=== PATIENT | female | born 1985 | race Caucasian/White ===

== ENCOUNTER 2017-08-16 06:17 | Emergency (ER) | payer OTHER ==
[~2017-08-16] VITALS: Ht 160 cm; Wt 52.2 kg
[~2017-08-16 06:17] MED LIST: ACETAMINOPHEN-1 EAC1 PO; BACTRIM DS TAB1 EACH PO; IBUPROFEN 600600 M1 PO; NOHOMEMEDICATIONS; NORCO 5-325 TA1 EACH PO; PHENAZOPYRIDIN200 M2 PO; PHENERGAN 25 MG25 M1 PO; ZOFRAN ODT4 MG PO
[2017-08-16] MEDS ORDERED: ADDERALL 30 MG30 MG PO (06:29)
[2017-08-16 06:41] LABS: ABSOLUTE NEUTROPHILS 3.5 thou/uL (1.4-8.2); BASOPHILS 0.8 % (0.0-2.0); EOSINOPHILS 1.2 % (0.0-3.0); HEMATOCRIT 42.2 % (37.0-47.0); HEMOGLOBIN 14.4 gm/dL (12.0-15.0); MCH 30.3 pg (26.0-34.0); MCHC 34.1 g/dL (28.0-37.0); MCV 88.9 fL (80.0-100.0); MONOCYTES 7.8 % (1.0-8.0); PLATELET COUNT 256 thou/uL (150-400); POLYS 50.2 % (36.0-66.0); RBC 4.74 mil/uL (4.20-5.00); RDW 12.6 % (10.5-14.5); WBC 6.9 thou/uL (4.0-11.0)
[2017-08-16 06:47] LABS: URINE BILIRUBIN NEGATIVE (Negative); URINE BLOOD NEGATIVE (Negative); URINE CLARITY CLEAR; URINE COLOR YELLOW; URINE GLUCOSE-RANDOM* NEGATIVE (Negative); URINE KETONES 3+ (Negative); URINE LEUKOCYTES NEGATIVE (Negative); URINE NITRITE POSITIVE (Negative); URINE PROTEIN (DIPSTICK) 1+ (Negative); URINE SPECIFIC GRAVITY >= 1.030 (1.005-1.035); URINE UROBILINOGEN 0.2 E.U./dl (0.2-1.0)
[2017-08-16 06:49] LABS: CALCIUM 9.6 mg/dL (8.5-10.1)
[2017-08-16 06:50] LABS: POTASSIUM 2.9 mmol/L (3.5-5.1)
[2017-08-16 06:54] LABS: ALBUMIN 4.3 g/dL (3.4-5.0); DIRECT BILIRUBIN 0.2 mg/dL (<0.1-0.3); TOTAL PROTEIN 8.1 g/dL (6.4-8.2)
[2017-08-16 07:42] LABS: CASTS None Seen /LPF (None Seen); CRYSTALS None Seen /LPF (None Seen); SQUAMOUS 0-3 Few /LPF (0-3); URINE WBC 6-15 Few /HPF (0-5)
[2017-08-16 07:43] LABS: URINE RBC 0-2 Rare /HPF (0-2)
[2017-08-16 07:47] LABS: BACTERIA >30 Many /HPF (None Seen)
[2017-08-16] MEDS ORDERED: MACROBID 100 M100 M1 PO (07:53)
[2017-08-16 08:45] VITALS: BP 120/87
[2017-08-16] MEDS ORDERED: ATIVAN1 MG PO (08:57)
== END 2017-08-16 08:45 | disposition home or self-care (01) ==
LOC: ER 06:17
PROVIDERS: Emergency Medicine
DX: F41.0 Panic disorder [episodic paroxysmal anxiety] (principal); E87.6 Hypokalemia; N39.0 Urinary tract infection, site not specified; R20.2 Paresthesia of skin; F12.10 Cannabis abuse, uncomplicated